=== PATIENT | male | born 1940 | race Caucasian/White ===

== ENCOUNTER 2019-09-19 12:35 | Day surgery (SDC) | payer MEDICARE, OTHER ==
[~2019-09-19] VITALS: Ht 190.5 cm; Wt 114.4 kg
[~2019-09-19 12:35] MED LIST: CHOL10003 PO; DIGO125T85 PO; FISH1CAP PO; RIVA15TA PO; SIMV40TA20 PO; TAMS-11 PO
[2019-09-19] MEDS ORDERED: FENTANYL PF 250 MCG/5ML ONE (12:45)
[2019-09-19] MEDS ORDERED: PROPOFOL 10 MG/ML, 20ML ONE (12:47)
[2019-09-19] MEDS ORDERED: SODIUM CHLORIDE 0.9% PF 10ML ONE (12:48)
[2019-09-19] MEDS ORDERED: ROCURONIUM 10MG/ML,5ML ONE (12:48)
[2019-09-19] MEDS ORDERED: CEFAZOLIN 1,000 MG ONE ×2 (12:48)
[2019-09-19] MEDS ORDERED: SUGAMMADEX 200 MG/2 ML IVPush ONE (12:48)
[2019-09-19 13:07] VITALS: BP 126/87
[2019-09-19] MEDS ORDERED: LACTATED RINGERS 1,000 ML IV SCH (13:09)
[2019-09-19] MEDS ORDERED: LABETALOL 5MG/ML, 20ML IV PRN (13:30)
[2019-09-19] MEDS ORDERED: hydrALAzine 20 MG/ML, 1ML IV PRN (13:30)
[2019-09-19] MEDS ORDERED: OXYcodone 5 MG/5 ML ORAL.SOL UDC PO PRN (13:30)
[2019-09-19] MEDS ORDERED: MEPERIDINE/PF 25MG/ML,1ML IVPush PRN (13:30)
[2019-09-19] MEDS ORDERED: HYDROmorphone 2 MG/ML, 1ML IVPush PRN (13:30)
[2019-09-19] MEDS ORDERED: ACETAMINOPHEN 325 MG TABLET PO PRN (13:30)
[2019-09-19] MEDS ORDERED: ONDANSETRON 2MG/ML, 2ML IV PRN (13:30)
[2019-09-19] MEDS ORDERED: MORPHINE SULFATE 4 MG/ML, 1ML IVPush PRN (13:30)
[2019-09-19] MEDS ORDERED: PHENYLEPHRINE 10 MG/ML ONE (13:40)
[2019-09-19] MEDS ORDERED: OMNIPAQUE 350 MG/ML, 50 ML BOTTLE IV ONE (14:35)
[2019-09-19] MEDS ORDERED: FENTANYL PF 100 MCG/2ML ONE (15:15)
[2019-09-19] MEDS: FENTANYL PF 100 MCG/2ML IV PRN ×2 (15:18→15:28)
[2019-09-19] MEDS ORDERED: OMNIPAQUE 350 MG/ML, 50 ML BOTTLE ONE (15:18)
[2019-09-19] MEDS ORDERED: OXYcodone 5 MG/5 ML ORAL.SOL UDC ONE (15:30)
== END 2019-09-19 17:30 | disposition home or self-care (01) ==
LOC: OR 12:35
PROVIDERS: ATTEND Urology
DX: N20.0 Calculus of kidney (principal); N13.8 Other obstructive and reflux uropathy; I48.91 Unspecified atrial fibrillation; I25.10 Atherosclerotic heart disease of native coronary artery without angina pectoris; I25.2 Old myocardial infarction; E78.5 Hyperlipidemia, unspecified; G47.33 Obstructive sleep apnea (adult) (pediatric); Z79.01 Long term (current) use of anticoagulants; Z79.899 Other long term (current) drug therapy; Z85.46 Personal history of malignant neoplasm of prostate; Z95.5 Presence of coronary angioplasty implant and graft
CPT/HCPCS: 52332; 74420; 93005; C1726; C1758; C1769; C2617; J0690; J2370; J2704; J3010; J7120; Q9967

== ENCOUNTER 2019-10-05 20:31 | Day surgery (SDC) | payer MEDICARE, OTHER ==
[~2019-10-05] VITALS: Ht 190.5 cm; Wt 112.6 kg
[2019-10-05 14:37] VITALS: BP 96/64
[~2019-10-05 20:31] MED LIST changes: +ACETAMINOPHEN 325 MG TABLET PO PRN; +CEFTRIAXONE 1,000 MG ONE; +CHLORHEXIDINE 15 ML UDC MM STA; +DEXAMETHASONE 4 MG/ML, 1ML ONE; +EPHEDRINE 50 MG/ML, 1ML IVPush PRN; +FENTANYL PF 100 MCG/2ML IV PRN; +FENTANYL PF 100 MCG/2ML ONE; +HYDROmorphone 2 MG/ML, 1ML IVPush PRN; +LABETALOL 5MG/ML, 20ML IV PRN; +LACTATED RINGERS 1,000 ML IV SCH; +LIDOCAINE-MPF 2% ,5ML ONE; +MEPERIDINE/PF 25MG/ML,1ML IVPush PRN; +METOPROLOL 1 MG/ML, 5ML ONE; +ONDANSETRON 2MG/ML, 2ML IV PRN; +ONDANSETRON 2MG/ML, 2ML ONE; +OXYcodone 5 MG/5 ML ORAL.SOL UDC PO PRN; +PHENYLEPHRINE 10 MG/ML ONE; +PROMETHAZINE 25 MG/ML, 1ML IV PRN; +PROPOFOL 10 MG/ML, 20ML ONE; +SUCCINYLCHOLINE 20 MG/ML, 10ML ONE; +hydrALAzine 20 MG/ML, 1ML IV PRN
== END 2019-10-05 20:54 | disposition home or self-care (01) ==
LOC: OR 20:31 → 4NE 20:32 → OR 20:54
PROVIDERS: ATTEND Urology
DX: N20.0 Calculus of kidney (principal); N40.0 Benign prostatic hyperplasia without lower urinary tract symptoms; I48.91 Unspecified atrial fibrillation; E78.5 Hyperlipidemia, unspecified; Z79.01 Long term (current) use of anticoagulants; Z79.899 Other long term (current) drug therapy; Z85.46 Personal history of malignant neoplasm of prostate
CPT/HCPCS: 52356; 74018; 87086; C1726; C1769; C2617; J0330; J0696; J1100; J2370; J2405; J2704; J3010; J7120; 76000; G0378